=== PATIENT | male | born 1965 | race Asian ===

== ENCOUNTER 2021-06-25 11:00 | Inpatient (IN) | payer OTHER, SELFPAY ==
[~2021-06-25] VITALS: Ht 182.9 cm; Wt 81.6 kg
[2021-06-25 11:28] VITALS: BP_SYST 140
[2021-06-25] MEDS ORDERED: ASPIRIN 81 MG TAB.CHEW PO ONE (12:15)
[2021-06-25 12:27] LABS: CALCIUM 8.4 mg/dL (8.4-11.0); CREATININE 0.7 mg/dL (0.55-1.30); POTASSIUM 4.1 mmol/L (3.5-5.1)
[2021-06-25 12:37] LABS: ALBUMIN 3.8 g/dL (3.4-4.8); TOTAL BILIRUBIN 0.3 mg/dL (0.0-1.0)
[2021-06-25 12:43] LABS: BASOPHILS # (AUTO) 0.1 K/uL (0.0-0.2); EOSINOPHILS # (AUTO) 0.1 K/uL (0.0-0.4); EOSINOPHILS % (AUTO) 1.2 % (0.0-4.0); HEMATOCRIT 38.2 % (36-54); HEMOGLOBIN 13.2 g/dL (14.0-18.0); LYMPHOCYTES # (AUTO) 2.1 K/uL (1.0-5.5); LYMPHOCYTES % (AUTO) 38.3 % (20.5-51.5); MEAN CORPUSCULAR HEMOGLOBIN 30 pg (27-31); MEAN CORPUSCULAR HGB CONC 35 % (32-36); MEAN CORPUSCULAR VOLUME 87 fL (79.0-98.0); MONOCYTES # (AUTO) 0.3 K/uL (0.0-1.0); MONOCYTES % (AUTO) 5.8 % (1.7-9.3); NEUTROPHILS # (AUTO) 2.9 K/uL (1.8-7.7); NEUTROPHILS % (AUTO) 53.7 % (40.0-70.0); PLATELET COUNT (AUTO) 263 K/uL (130-430); RED BLOOD CELL COUNT(AUTO) 4.39 MIL/uL (4.2-6.2); WHITE BLOOD COUNT (AUTO) 5.4 K/uL (4.8-10.8)
[2021-06-25 18:32] VITALS: BP_SYST 133
[2021-06-25 18:50] VITALS: BP_SYST 133
[2021-06-26 08:00] VITALS: BP_SYST 144
[2021-06-26] MEDS ORDERED: APIXABAN 2.5 MG TABLET PO SCH (09:00)
[2021-06-26] MEDS ORDERED: ENOXAPARIN SODIUM 80 MG/0.8 ML SYRINGE SUBCUT ONE (09:30)
[2021-06-26] MEDS ORDERED: *LOVENOX 1MG/KG Q12H/PHARMACY XX PRN (09:30)
[2021-06-26] MEDS ORDERED: NITROGLYCERIN 0.4 MG TAB.SUBL SL PRN (09:30)
[2021-06-26] MEDS ORDERED: HYDROcodone/ACETAMIN 5-325 MG TAB (NORCO/ VICODIN) PO PRN (10:00)
[2021-06-26] MEDS ORDERED: NALOXONE HCL 0.4 MG/ML AMP (NARCAN) IVP PRN ×2 (10:00)
[2021-06-26] MEDS ORDERED: ACETAMINOPHEN 325 MG TABLET PO PRN (10:00)
[2021-06-26] MEDS ORDERED: ONDANSETRON HCL 4 MG/2 ML VIAL IVP PRN (10:00)
[2021-06-26] MEDS ORDERED: LORazepam 2 MG/ML VIAL IVP PRN (10:00)
[2021-06-26] MEDS ORDERED: HYDROcodone/ACETAMIN 10-325 MG TAB PO PRN (10:00)
[2021-06-26] MEDS: METOPROLOL TARTRATE 25 MG TABLET PO SCH (10:48)
[2021-06-26] MEDS: ASPIRIN 81 MG TAB.CHEW PO SCH (10:48)
[2021-06-26] MEDS: ATORVASTATIN 20 MG TABLET PO SCH (10:48)
[2021-06-26] MEDS: NICOTINE 14 MG/24 HR PATCH.TD24 TD SCH (10:49)
[2021-06-26 12:00] VITALS: BP_SYST 152
[2021-06-26] MEDS: NORMAL SALINE 5 ML DISP.SYRIN IVF SCH ×2 (14:00→14:59)
[2021-06-26 16:00] VITALS: BP_SYST 128
[2021-06-26 20:30] VITALS: BP_SYST 146
[2021-06-26] MEDS ORDERED: ENOXAPARIN SODIUM 80 MG/0.8 ML SYRINGE SUBCUT SCH (21:00)
[2021-06-27] MEDS: METOPROLOL TARTRATE 25 MG TABLET PO SCH ×3 (00:03→23:51)
[2021-06-27] MEDS: NORMAL SALINE 5 ML DISP.SYRIN IVF SCH ×6 (06:00→22:00)
[2021-06-27 06:50] LABS: BASOPHILS # (AUTO) 0.1 K/uL (0.0-0.2); EOSINOPHILS # (AUTO) 0.1 K/uL (0.0-0.4); EOSINOPHILS % (AUTO) 1.8 % (0.0-4.0); HEMATOCRIT 37.6 % (36-54); HEMOGLOBIN 12.6 g/dL (14.0-18.0); LYMPHOCYTES # (AUTO) 2.7 K/uL (1.0-5.5); MEAN CORPUSCULAR HEMOGLOBIN 30 pg (27-31); MEAN CORPUSCULAR HGB CONC 34 % (32-36); MEAN CORPUSCULAR VOLUME 89 fL (79.0-98.0); MONOCYTES # (AUTO) 0.4 K/uL (0.0-1.0); MONOCYTES % (AUTO) 6.3 % (1.7-9.3); NEUTROPHILS # (AUTO) 3.8 K/uL (1.8-7.7); NEUTROPHILS % (AUTO) 52.9 % (40.0-70.0); PLATELET COUNT (AUTO) 260 K/uL (130-430); RED BLOOD CELL COUNT(AUTO) 4.25 MIL/uL (4.2-6.2); RED CELL DISTRIBUTION WIDTH 13.5 % (9.0-15.0); WHITE BLOOD COUNT (AUTO) 7.1 K/uL (4.8-10.8)
[2021-06-27 07:20] LABS: ALBUMIN 3.4 g/dL (3.4-4.8); CALCIUM 8.2 mg/dL (8.4-11.0); CREATININE 0.76 mg/dL (0.55-1.30); PHOSPHORUS 4.7 mg/dL (2.7-4.5); POTASSIUM 3.6 mmol/L (3.5-5.1); TOTAL BILIRUBIN 0.2 mg/dL (0.0-1.0)
[2021-06-27 07:41] VITALS: BP_SYST 155
[2021-06-27] MEDS: ATORVASTATIN 20 MG TABLET PO SCH (10:26)
[2021-06-27] MEDS: ASPIRIN 81 MG TAB.CHEW PO SCH (10:26)
[2021-06-27] MEDS: NICOTINE 14 MG/24 HR PATCH.TD24 TD SCH (10:31)
[2021-06-27 12:15] VITALS: BP_SYST 145
[2021-06-27 14:23] LABS: CHOLESTEROL 173 mg/dL (<200); HDL CHOLESTEROL 41 mg/dL (>45); LDL CHOLESTEROL 110 mg/dL (<100); TRIGLYCERIDES 129 mg/dL (30-150)
[2021-06-27 16:10] VITALS: BP_SYST 142
[2021-06-27 20:00] VITALS: BP_SYST 153
[2021-06-28] MEDS ORDERED: fentaNYL CITRATE/PF 100 MCG/2 ML AMP ONE (05:33)
[2021-06-28] MEDS ORDERED: MIDAZOLAM HCL 5 MG/5 ML VIAL ONE ×2 (05:33→07:21)
[2021-06-28] MEDS ORDERED: BENZOCAINE 20% 0.5mL UD SPRAY MM ONE (05:33)
[2021-06-28] MEDS: NORMAL SALINE 5 ML DISP.SYRIN IVF SCH ×3 (06:00→10:38)
[2021-06-28 07:43] LABS: BASOPHILS # (AUTO) 0.1 K/uL (0.0-0.2); BASOPHILS % (AUTO) 0.8 % (0.0-2.0); EOSINOPHILS # (AUTO) 0.2 K/uL (0.0-0.4); EOSINOPHILS % (AUTO) 2.1 % (0.0-4.0); HEMATOCRIT 39.1 % (36-54); LYMPHOCYTES # (AUTO) 2.5 K/uL (1.0-5.5); LYMPHOCYTES % (AUTO) 35.2 % (20.5-51.5); MEAN CORPUSCULAR HEMOGLOBIN 30 pg (27-31); MEAN CORPUSCULAR HGB CONC 33 % (32-36); MEAN CORPUSCULAR VOLUME 88 fL (79.0-98.0); MONOCYTES # (AUTO) 0.5 K/uL (0.0-1.0); NEUTROPHILS % (AUTO) 54.9 % (40.0-70.0); PLATELET COUNT (AUTO) 266 K/uL (130-430); RED BLOOD CELL COUNT(AUTO) 4.42 MIL/uL (4.2-6.2); RED CELL DISTRIBUTION WIDTH 13.8 % (9.0-15.0); WHITE BLOOD COUNT (AUTO) 7.2 K/uL (4.8-10.8)
[2021-06-28 08:07] LABS: CALCIUM 8.6 mg/dL (8.4-11.0); CREATININE 0.78 mg/dL (0.55-1.30); POTASSIUM 3.8 mmol/L (3.5-5.1)
[2021-06-28 09:00] VITALS: BP_SYST 155
[2021-06-28] MEDS ORDERED: CARVEDILOL 6.25 MG TABLET (COREG) PO SCH (09:00)
[2021-06-28] MEDS ORDERED: LOSARTAN POTASSIUM 50 MG TABLET (COZAAR) PO SCH (09:00)
[2021-06-28] MEDS ORDERED: APIXABAN 2.5 MG TABLET PO SCH (09:00)
[2021-06-28] MEDS: ASPIRIN 81 MG TAB.CHEW PO SCH (09:31)
[2021-06-28] MEDS: ATORVASTATIN 20 MG TABLET PO SCH (09:31)
[2021-06-28] MEDS: NICOTINE 14 MG/24 HR PATCH.TD24 TD SCH (09:34)
[2021-06-28] MEDS ORDERED: LOSA50TA3 PO (11:22)
[2021-06-28] MEDS ORDERED: COR6.25 PO (11:22)
[2021-06-28] MEDS ORDERED: LIP20 PO (11:22)
[2021-06-28] MEDS ORDERED: NICO-680 TD (11:22)
[2021-06-28] MEDS ORDERED: APIX2.5T PO (11:22)
[2021-06-28] MEDS ORDERED: NITSL SL (11:22)
[2021-06-28] MEDS ORDERED: ASA81 PO (11:22)
[2021-06-28 11:54] VITALS: BP_SYST 137
[2021-06-28 15:37] VITALS: BP_SYST 101
[2021-06-28 16:02] VITALS: BP_SYST 110
== END 2021-06-28 16:40 | disposition home or self-care (01) | DRG 310 ==
LOC: SED 11:00 → STU 16:21
PROVIDERS: ADMIT Internal Medicine Cardiovascular Disease; ATTEND Preventive Medicine Preventive Medicine/Occupational Environmental Medicine
DX: I48.91 Unspecified atrial fibrillation (principal); I10 Essential (primary) hypertension; I51.7 Cardiomegaly; F17.200 Nicotine dependence, unspecified, uncomplicated; R73.9 Hyperglycemia, unspecified; E83.52 Hypercalcemia; F10.10 Alcohol abuse, uncomplicated; Y90.9 Presence of alcohol in blood, level not specified; Z20.822 Contact with and (suspected) exposure to COVID-19; I35.1 Nonrheumatic aortic (valve) insufficiency; I34.0 Nonrheumatic mitral (valve) insufficiency; Z86.73 Personal history of transient ischemic attack (TIA), and cerebral infarction without residual deficits
CPT/HCPCS: 36415; 70551; 71045; 80048; 80053; 80061; 83735; 83880; 84100; 84484; 85025; 93005; 93017; 93306; 93880; 99285; G0378; J1650; J2250; J3010